=== PATIENT | female | born 1970 | race Two or more races ===

== ENCOUNTER 2022-10-01 08:15 | Inpatient (IN) | payer OTHER ==
[~2022-10-01] VITALS: Ht 171.4 cm; Wt 81.2 kg
[2022-10-01] MEDS ORDERED: HORIZANT300 MG PO (09:08)
[2022-10-01] MEDS ORDERED: NURTEC ODT75 MG PO (09:09)
[2022-10-01] MEDS ORDERED: IRON325 MG PO (09:09)
[2022-10-05] MEDS ORDERED: KETO10TA2 PO (10:11)
[2022-10-05] MEDS ORDERED: OXYC1TAB9 PO (10:11)
== END 2022-10-05 10:50 | disposition home or self-care (01) | DRG 742 ==
LOC: EDSTATUS 08:15 → ADM 08:15 → O/R 10-02 06:07 → OB/GYN 10-02 08:15
PROVIDERS: Surgery; ADMIT Obstetrics & Gynecology; ATTEND Obstetrics & Gynecology
PROC: 0UT94ZL Resection of Uterus, Supracervical, Percutaneous Endoscopic Approach (ICD-10-PCS; 2022-10-02)
PROC: 0DNJ4ZZ Release Appendix, Percutaneous Endoscopic Approach (ICD-10-PCS; 2022-10-02)
PROC: 0DTJ4ZZ Resection of Appendix, Percutaneous Endoscopic Approach (ICD-10-PCS; 2022-10-02)
PROC: 0WUF4JZ Supplement Abdominal Wall with Synthetic Substitute, Percutaneous Endoscopic Approach (ICD-10-PCS; 2022-10-02)
PROC: 0UT24ZZ Resection of Bilateral Ovaries, Percutaneous Endoscopic Approach (ICD-10-PCS; principal; 2022-10-02 12:15)
PROC: 0UT74ZZ Resection of Bilateral Fallopian Tubes, Percutaneous Endoscopic Approach (ICD-10-PCS; 2022-10-02 12:15)
DX: D25.1 Intramural leiomyoma of uterus (principal); K42.0 Umbilical hernia with obstruction, without gangrene; D25.0 Submucous leiomyoma of uterus; D25.2 Subserosal leiomyoma of uterus; N83.11 Corpus luteum cyst of right ovary; N83.12 Corpus luteum cyst of left ovary; Z20.822 Contact with and (suspected) exposure to COVID-19